=== PATIENT | female | born 1955 | race Caucasian/White ===

== ENCOUNTER 2024-11-17 13:02 | Outpatient (CLI) | payer MEDICARE, OTHER ==
[2024-11-17 15:27] LABS: #Basophils 0.05 10x3/uL (0.0-0.2); %Basophils 0.6 % (0.0-1.0); %Eosinophils 0.5 % (0.0-10.0); %Lymphocytes 24.4 % (21.0-51.0); %Monocytes 6.9 % (0.0-10.0); %Neutrophils 67.4 % (42.0-75.0); Hematocrit 34.4 % (36.0-47.0); Hemoglobin 11.6 g/dL (12.0-16.0); Mean Corpuscular HGB CONC 33.7 g/dL (32.0-36.0); Mean Corpuscular Hemoglobin 33.2 pg (27.0-31.0); Mean Corpuscular Volume 98.6 fL (78.0-98.0); Mean Platelet Volume 10.7 fL (7.4-10.4); Platelet Count 317 10x3/uL (130-400); RBC Distribution Width 12.5 % (11.5-14.5); Red Blood Cell (RBC) Count 3.49 mill/uL (4.20-5.40)
[2024-11-17 16:02] LABS: INR-International Normal Ratio 0.9; Prothrombin Time 12.4 sec (12.0-14.7)
[2024-11-17 16:03] LABS: PTT 30.2 sec (22.9-36.1)
== END 2024-11-17 13:03 | disposition home or self-care (01) ==
LOC: LABBT 13:02
PROVIDERS: ATTEND Orthopaedic Surgery
DX: Z01.818 Encounter for other preprocedural examination (principal); M17.0 Bilateral primary osteoarthritis of knee
CPT/HCPCS: 85025; 85610; 85730; 87081; 93005; 93010

== ENCOUNTER 2024-11-24 06:45 | Inpatient (IN) | payer MEDICARE, OTHER ==
[2024-11-24] MEDS ORDERED: Midazolam HCl 2 mg/2 ml Vial ONE (07:56)
[2024-11-24] MEDS ORDERED: fentaNYL 50 mcg/mL 1 mL Vial ONE (07:56)
[2024-11-24] MEDS ORDERED: Ropivacaine 0.5% HCl/PF (150 MG/30 ML VIAL) ONE (07:56)
[2024-11-24] MEDS ORDERED: Tranexamic Acid 1,000 MG/10 ML VIAL ONE (08:02)
[2024-11-24] MEDS ORDERED: Vancomycin 1 GM/200 ML (FROZEN) BAG ONE (08:02)
[2024-11-24] MEDS ORDERED: Sodium Chloride 0.9% 100 ML ONE (08:02)
[2024-11-24] MEDS ORDERED: fentaNYL PF 100 MCG/2 ML SYRINGE ONE ×3 (08:36→12:36)
[2024-11-24] MEDS ORDERED: PROPOFOL 40 ML ONE (08:37)
[2024-11-24] MEDS ORDERED: Lidocaine 2% PF 5 ML VIAL ONE (08:39)
[2024-11-24] MEDS ORDERED: Bupivacaine 0.25% HCL 30 ML VIAL ONE (09:14)
[2024-11-24] MEDS ORDERED: EPINEPHrine 1 MG/ML VIAL ONE (09:14)
[2024-11-24] MEDS ORDERED: traMADol HCl 50 MG TAB PO PRN (09:15)
[2024-11-24] MEDS ORDERED: fentaNYL 50 mcg/mL 1 mL Vial SLOW IVP PRN (09:15)
[2024-11-24] MEDS ORDERED: Promethazine HCl 25 MG/ML VIAL IM PRN ×2 (09:15→12:19)
[2024-11-24] MEDS ORDERED: Zolpidem Tartrate 5 MG TAB PO PRN ×2 (09:15→12:19)
[2024-11-24] MEDS ORDERED: Ropivacaine 0.2% 550 ML 550 ML NERVE BLCK SCH (09:15)
[2024-11-24] MEDS ORDERED: Ondansetron PF 4 MG/2 ML Vial IVP PRN ×2 (09:15→12:19)
[2024-11-24] MEDS ORDERED: CEFAZOLIN 2 GM VIAL ONE (09:33)
[2024-11-24] MEDS ORDERED: Rocuronium Bromide 10 MG/ML (10ML VIAL) ONE (09:50)
[2024-11-24] MEDS ORDERED: Ketorolac Tromethamine 30 MG (1 mL) VIAL ONE (09:50)
[2024-11-24] MEDS ORDERED: Dexamethasone 20 MG/5 ML VIAL ONE (09:55)
[2024-11-24] MEDS ORDERED: Ondansetron PF 4 MG/2 ML Vial ONE (09:55)
[2024-11-24] MEDS ORDERED: PHENYLEPHRINE-NS 100 MCG/ML 10 ML SYRINGE ONE (10:03)
[2024-11-24] MEDS ORDERED: HYDROmorphone 2 MG/ML VIAL ONE (12:09)
[2024-11-24] MEDS ORDERED: diphenhydrAMINE 25 MG CAP PO PRN (12:19)
[2024-11-24] MEDS ORDERED: Acetaminophen 325 MG TAB PO PRN (12:19)
[2024-11-24 13:55] VITALS: BMI 33.2
[2024-11-24] MEDS: Ketorolac Tromethamine 30 MG (1 mL) VIAL IVP SCH (14:27)
[2024-11-24] MEDS: Sodium Chloride 0.9% 1,000 ML IV SCH (14:28)
[2024-11-24] MEDS: CEFAZOLIN 2 GM in Sodium Chloride 0.9% 100 ML IVPB SCH (16:09)
[2024-11-24] MEDS: Ferrous Gluconate 324 MG TAB PO SCH (16:09)
[2024-11-24] MEDS: HYDROcodone/Acetaminophen 10/325 mg Tablet PO PRN (16:10)
[2024-11-24] MEDS: Atorvastatin Calcium 10 MG TAB PO SCH (21:12)
[2024-11-24] MEDS: Calcium Carbonate 600 MG + Vit D TAB PO SCH (21:12)
[2024-11-24] MEDS: Aspirin 81 mg Enteric Coated Tablet PO SCH (21:12)
[2024-11-24] MEDS: Losartan 25 MG TAB PO SCH (21:12)
[2024-11-24] MEDS: Cholecalciferol 1,000 UNITS (25 MCG) TAB PO SCH (21:13)
[2024-11-24] MEDS: Senokot S 8.6-50 MG TAB PO SCH (21:13)
[2024-11-24] MEDS: metFORMIN XR 500 MG ER.TAB PO SCH (21:13)
[2024-11-24] MEDS: Calcium Carbonate 500 MG ChewTAB PO SCH (21:13)
[2024-11-25] MEDS: HYDROcodone/Acetaminophen 10/325 mg Tablet PO PRN (04:42)
[2024-11-25 05:32] LABS: Hematocrit 27.8 % (36.0-47.0); Hemoglobin 9.4 g/dL (12.0-16.0); Mean Corpuscular HGB CONC 33.8 g/dL (32.0-36.0); Mean Corpuscular Hemoglobin 33.9 pg (27.0-31.0); Mean Corpuscular Volume 100.4 fL (78.0-98.0); Mean Platelet Volume 10.5 fL (7.4-10.4); Platelet Count 307 10x3/uL (130-400); RBC Distribution Width 12.8 % (11.5-14.5); Red Blood Cell (RBC) Count 2.77 mill/uL (4.20-5.40)
[2024-11-25] MEDS: valACYclovir 500 MG TAB PO SCH (08:51)
[2024-11-25] MEDS: Acidophilus Lactiobac CAPSULE PO SCH (08:54)
[2024-11-25] MEDS: traMADol HCl 50 MG TAB PO PRN (16:21)
[2024-11-25] MEDS: Multivitamin W/ Minerals 1 TAB PO SCH (21:15)
[2024-11-26 05:25] LABS: Hematocrit 26.7 % (36.0-47.0); Mean Corpuscular HGB CONC 33.7 g/dL (32.0-36.0); Mean Corpuscular Hemoglobin 33.2 pg (27.0-31.0); Mean Corpuscular Volume 98.5 fL (78.0-98.0); Mean Platelet Volume 10.9 fL (7.4-10.4); Platelet Count 231 10x3/uL (130-400); Red Blood Cell (RBC) Count 2.71 mill/uL (4.20-5.40)
[2024-11-26 11:38] VITALS: BP 131/60; TEMP 97.7
== END 2024-11-26 14:29 | disposition home or self-care (01) | DRG 470 ==
LOC: SDC 06:45 → SURG B 09:29 → SDC 15:23 → OBSVTOIN 11-26 09:38
PROVIDERS: ADMIT Orthopaedic Surgery; ATTEND Orthopaedic Surgery
PROC: 0SRC0J9 Replacement of Right Knee Joint with Synthetic Substitute, Cemented, Open Approach (ICD-10-PCS; principal; 2024-11-26)
PROC: 8E0Y0CZ Robotic Assisted Procedure of Lower Extremity, Open Approach (ICD-10-PCS; 2024-11-26)
DX: M17.11 Unilateral primary osteoarthritis, right knee (principal); M21.161 Varus deformity, not elsewhere classified, right knee
CPT/HCPCS: 36415; 85027; 96374; 96376; A4306; C1713; C1776; C1889; G0378; J0171; J0665; J1100; J1171; J1885; J2250; J2405; J2704; J2795; J3010; J3370; J7030

== ENCOUNTER 2025-10-12 13:10 | Outpatient (CLI) | payer MEDICARE, OTHER ==
[2025-10-12 14:48] LABS: #Basophils 0.03 10x3/uL (0.0-0.2); #Eosinophils Less than 0.03 10x3/uL (0.0-0.7); #Monocytes 0.66 10x3/uL (0.11-0.59); #Neutrophils 5.44 10x3/uL (1.40-6.50); %Basophils 0.4 % (0.0-1.0); %Eosinophils 0.2 % (0.0-10.0); %Lymphocytes 26.5 % (21.0-51.0); %Monocytes 7.9 % (0.0-10.0); %Neutrophils 64.8 % (42.0-75.0); Hematocrit 34.4 % (36.0-47.0); Hemoglobin 11.8 g/dL (12.0-16.0); Mean Corpuscular Hemoglobin 33.6 pg (27.0-31.0); Mean Corpuscular Volume 98.0 fL (78.0-98.0); Platelet Count 280 10x3/uL (130-400); Red Blood Cell (RBC) Count 3.51 mill/uL (4.20-5.40); White Blood Cell (WBC) Count 8.39 10x3/uL (4.8-10.8)
[2025-10-12 15:04] LABS: INR-International Normal Ratio 1.0; Prothrombin Time 12.9 sec (12.0-14.7)
[2025-10-12 15:11] LABS: ALT (SGPT) 25 U/L (Less than 34); AST (SGOT) 21 U/L (11-34); Albumin 4.4 g/dL (3.1-4.5); Alkaline Phosphatase 79 U/L (40-110); Anion Gap 14 mmol/L (10-20); BUN (Urea Nitrogen) 13 mg/dL (9.8-20.1); Bilirubin, Total 1.2 mg/dL (0.3-1.2); Calc. Creatinine Clearance 0 mL/min (70-130); Calcium 9.9 mg/dL (7.8-10.44); Carbon Dioxide 27 mmol/L (23-31); Chloride 107 mmol/L (98-107); Globulin 2.6 g/dL (2.4-3.5); Glucose 92 mg/dL (80-115); Potassium 4.0 mmol/L (3.5-5.1); Sodium 144 mmol/L (136-145)
== END 2025-10-12 13:11 | disposition home or self-care (01) ==
LOC: LABBT 13:10
PROVIDERS: ATTEND Orthopaedic Surgery
DX: Z01.818 Encounter for other preprocedural examination (principal); M17.12 Unilateral primary osteoarthritis, left knee
CPT/HCPCS: 80053; 85025; 85610; 87081; 93005; 93010

== ENCOUNTER 2025-10-13 12:35 | Outpatient (CLI) | payer MEDICARE, OTHER | END 2025-10-13 12:36 | disposition home or self-care (01) | LOC: CT 12:35 | PROVIDERS: ATTEND Orthopaedic Surgery | DX: Z01.818 Encounter for other preprocedural examination (principal); M17.12 Unilateral primary osteoarthritis, left knee ==

== ENCOUNTER 2025-10-19 06:35 | Inpatient (IN) | payer MEDICARE, OTHER ==
[2025-10-19] MEDS ORDERED: Lidocaine 1% (PF) 30 ML VIAL ONE (07:24)
[2025-10-19] MEDS ORDERED: Ropivacaine 0.5% HCl/PF (150 MG/30 ML VIAL) ONE (07:24)
[2025-10-19] MEDS ORDERED: Vancomycin 1 GM/200 ML (FROZEN) BAG ONE (07:33)
[2025-10-19] MEDS ORDERED: Tranexamic Acid 1,000 MG/10 ML VIAL ONE (07:33)
[2025-10-19] MEDS ORDERED: Lidocaine 1% PF 5 ML VIAL ONE (08:05)
[2025-10-19] MEDS ORDERED: HYDROcodone/Acetaminophen 10/325 mg Tablet PO PRN (08:15)
[2025-10-19] MEDS ORDERED: Ropivacaine 0.2% 550 ML 550 ML NERVE BLCK SCH (08:15)
[2025-10-19] MEDS ORDERED: Ondansetron PF 4 MG/2 ML Vial IVP PRN ×2 (08:15→11:07)
[2025-10-19] MEDS ORDERED: PHENYLEPHRINE-NS 100 MCG/ML 10 ML SYRINGE ONE (09:10)
[2025-10-19] MEDS ORDERED: PROPOFOL 200 MG/20 ML VIAL ONE (09:10)
[2025-10-19] MEDS ORDERED: Ondansetron PF 4 MG/2 ML Vial ONE (09:36)
[2025-10-19] MEDS ORDERED: LACTOBACILLUS ACIDOPHILUS PO SCH (11:07)
[2025-10-19] MEDS ORDERED: valACYclovir 500 MG TAB PO SCH (11:07)
[2025-10-19] MEDS ORDERED: diphenhydrAMINE 25 MG CAP PO PRN (11:07)
[2025-10-19] MEDS ORDERED: Non-Formulary Item 1 EACH (Cholecalciferol (Vitamin D3) [Vitamin D3] 5,000 UNIT Capsule) PO SCH (11:07)
[2025-10-19] MEDS ORDERED: fentaNYL PF 100 MCG/2 ML SYRINGE ONE (11:24)
[2025-10-19] MEDS ORDERED: HYDROmorphone 0.5 MG/0.5 ML SYR SLOW IVP PRN (11:25)
[2025-10-19] MEDS ORDERED: HYDROmorphone 0.5 MG/0.5 ML SYRINGE ONE ×2 (11:34→12:06)
[2025-10-19] MEDS: Ketorolac Tromethamine 30 MG (1 mL) VIAL IVP SCH (11:39)
[2025-10-19] MEDS: Multivitamin W/ Minerals 1 TAB PO SCH (12:48)
[2025-10-19] MEDS: Senokot S 8.6-50 MG TAB PO SCH (12:48)
[2025-10-19] MEDS: Ferrous Gluconate 324 MG TAB PO SCH (12:48)
[2025-10-19] MEDS: Aspirin 81 mg Enteric Coated Tablet PO SCH (12:48)
[2025-10-19] MEDS: HYDROcodone/Acetaminophen 10/325 mg Tablet PO PRN (15:11)
[2025-10-19 16:39] VITALS: BMI 37.4
[2025-10-19] MEDS: Acetaminophen 325 MG TAB PO PRN (18:19)
[2025-10-19] MEDS: Calcium Carbonate 600 MG + Vit D TAB PO SCH (20:46)
[2025-10-19] MEDS: Losartan 25 MG TAB PO SCH (20:46)
[2025-10-19] MEDS: Cholecalciferol 1,000 UNITS (25 MCG) TAB PO SCH (20:46)
[2025-10-19] MEDS ORDERED: Non-Formulary Item 1 EACH (Telmisartan [Telmisartan] 80 MG Tablet) PO SCH (21:00)
[2025-10-20 05:02] LABS: Hematocrit 27.1 % (36.0-47.0); Hemoglobin 8.8 g/dL (12.0-16.0); Mean Corpuscular Hemoglobin 33.0 pg (27.0-31.0); Mean Corpuscular Volume 101.5 fL (78.0-98.0); Platelet Count 228 10x3/uL (130-400); Red Blood Cell (RBC) Count 2.67 mill/uL (4.20-5.40); White Blood Cell (WBC) Count 8.73 10x3/uL (4.8-10.8)
[2025-10-20] MEDS: valACYclovir 500 MG TAB PO SCH (08:34)
[2025-10-20] MEDS: Floranex 1 GM Packet PO SCH (08:36)
[2025-10-20] MEDS ORDERED: Acidophilus Lactiobac CAPSULE PO SCH (09:00)
[2025-10-21 06:06] LABS: Hematocrit 26.8 % (36.0-47.0); Hemoglobin 8.8 g/dL (12.0-16.0); Mean Corpuscular Hemoglobin 33.0 pg (27.0-31.0); Mean Corpuscular Volume 100.4 fL (78.0-98.0); Platelet Count 207 10x3/uL (130-400); Red Blood Cell (RBC) Count 2.67 mill/uL (4.20-5.40); White Blood Cell (WBC) Count 7.81 10x3/uL (4.8-10.8)
[2025-10-21 07:59] VITALS: BP 152/84; TEMP 98.7
== END 2025-10-21 12:49 | disposition home or self-care (01) | DRG 470 ==
LOC: SDC 06:35 → SURG A 12:22 → SDC 15:09 → OBSVTOIN 10-20 14:35
PROVIDERS: ADMIT Orthopaedic Surgery; ATTEND Orthopaedic Surgery
PROC: 0SRD0JZ Replacement of Left Knee Joint with Synthetic Substitute, Open Approach (ICD-10-PCS; principal; 2025-10-19)
PROC: 3E03329 Introduction of Other Anti-infective into Peripheral Vein, Percutaneous Approach (ICD-10-PCS; 2025-10-19)
DX: M17.12 Unilateral primary osteoarthritis, left knee (principal); Z88.2 Allergy status to sulfonamides; Z88.6 Allergy status to analgesic agent; Z88.8 Allergy status to other drugs, medicaments and biological substances
CPT/HCPCS: 36415; 85027; A4306; C1713; C1776; C1889; J0169; J1100; J1171; J1885; J2003; J2405; J2704; J2795; J3010; J3373; J7030